=== PATIENT | female | born 1985 | race Two or more races ===

== ENCOUNTER 2016-04-25 07:54 | Day surgery (SDC) | payer OTHER ==
[~2016-04-25 07:54] MED LIST: IV START KIT ONE; LACTATED RINGERS 1,000 ML ONE
[2016-04-25] MEDS ORDERED: LACTATED RINGERS 1,000 ML IV SCH ×2 (08:25→12:00)
[2016-04-25] MEDS ORDERED: LIDOCAINE 1% 2 ML VIAL ID PRN (09:29)
[2016-04-25] MEDS ORDERED: MIDAZOLAM HCL 1 MG/ML 2ML VIAL ONE (10:19)
[2016-04-25] MEDS ORDERED: FENTANYL 5 ML ONE (10:20)
[2016-04-25] MEDS ORDERED: BUPIVACAINE 0.25% EPI PF 30 ML VIAL ONE (11:23)
[2016-04-25] MEDS ORDERED: SUCCINYLCHOLINE CHL 20 MG/ML DOSE ONE (11:41)
[2016-04-25] MEDS ORDERED: ROCURONIUM BROMIDE 10 MG/ML DOSE IV ONE (11:41)
[2016-04-25] MEDS ORDERED: DEXAMETHASONE SOD PHOS 4 MG/1 ML VIAL ONE (11:41)
[2016-04-25] MEDS ORDERED: ONDANSETRON 4 MG/2ML 2 ML VIAL ONE ×2 (11:41→14:55)
[2016-04-25] MEDS ORDERED: PROPOFOL 20 ML IV ONE (11:41)
[2016-04-25] MEDS ORDERED: LIDOCAINE 2% (MULTI DOSE) 10 ML VIAL ONE (11:41)
[2016-04-25] MEDS ORDERED: ONDANSETRON 4 MG/2ML 2 ML VIAL IV PRN ×2 (11:48→13:42)
[2016-04-25] MEDS ORDERED: HYDROMORPHONE HCL 1 MG/ML SYRINGE IV PRN (11:48)
[2016-04-25] MEDS ORDERED: FENTANYL 100 MCG/2 ML VIAL IV PRN (11:48)
[2016-04-25] MEDS ORDERED: MEPERIDINE 25 MG/ML SYRINGE IV PRN (11:48)
[2016-04-25] MEDS ORDERED: NALOXONE HCL 0.4 MG/ML VIAL IV PRN (11:48)
[2016-04-25] MEDS ORDERED: PROMETHAZINE HCL 25 MG/ML VIAL IM PRN (11:48)
[2016-04-25] MEDS ORDERED: ATROPINE SULFATE 0.4 MG/1 ML VIAL IV PRN (11:48)
[2016-04-25] MEDS ORDERED: KETOROLAC TROMETHAMINE 30 MG/ML 1 ML VIAL ONE ×2 (11:55→14:41)
[2016-04-25] MEDS ORDERED: KETAMINE HCL 50 MG/ML 1 ML DOSE ONE (12:04)
[2016-04-25] MEDS ORDERED: HYDROMORPHONE HCL 2 MG/ML SYRINGE ONE (12:45)
--- NOTE | 2016-04-25 13:22 | PDOC5 ---
Hospital Course: ADMIT DATE: DISCHARGE DATE: 04/25/16 ADMISSION DIAGNOSES: Pelvic pain, abnormal bleeding with abnormal uterus on US PROCEDURES: laparoscopy, hysteroscopy, D&C HISTORY OF PRESENT ILLNESS: 31 year old presenting for surgery, after postponing this from 04/04/16 because of an URI. She is feeling better but may have a yeast infx. HOSPITAL COURSE: The patient had a laparoscopy that was essentially normal and uncomplicated. Hysteroscopy showed several polyps and a lush endometrium but otherwise normal. No sign of endometriosis or infection. Bowels appeared full , ?bloated. By day of discharge the patient is ambulating, eating, voiding, and passing flatus without difficulty. Pain is controlled. - Objective General: Afebrile Lungs: Clear to Auscultation Bilaterally Cardiovascular: Regular Rate and Rhythm Abdomen: Soft, Non-Distended Wound [employer]: Dressing Clean/Dry/Intact Genitourinary: Normal Female Genitalia Extremities: Full ROM Skin: Normal Color, Warm Neurological: Normal Speech Psych/Mental Status: Normal Affect - Discharge Diagnosis (1) Chronic female pelvic pain Status: Acute Assessment/Plan: No endometriosis, no adhesions, no sign of infection. - Discharge Plan Condition: Good Disposition: Home Prescriptions: Ibuprofen [Motrin] 800 mg PO Q8H PRN #100 tablet PRN Reason: Pain Oxycodone HCl/Acetaminophen [PERCOCET 5/325 MG TABLET (SHF)] 1 tab PO Q4H PRN # 40 tab PRN Reason: Pain Follow-Up: Mallory Granado MD [Staff Physician] - In 7-10 days
[2016-04-25] MEDS ORDERED: MORPHINE SULFATE 2 MG/ML SYRINGE IV PRN (13:42)
[2016-04-25] MEDS ORDERED: ACETAMINOPHEN 325 MG TABLET PO PRN (13:42)
[2016-04-25] MEDS ORDERED: KETOROLAC TROMETHAMINE 30 MG/ML 1 ML VIAL IV PRN (13:42)
[2016-04-25] MEDS ORDERED: FLUCONAZOLE 150 MG TABLET PO ONE (13:42)
[2016-04-25] MEDS ORDERED: OXYCODONE/ACETAMINOPHEN 5/325 MG TABLET PO PRN (13:42)
[2016-04-25] MEDS ORDERED: DIPHENHYDRAMINE HCL 50 MG/1 ML VIAL IV PRN (13:42)
[2016-04-25] MEDS ORDERED: IBUPROFEN 800 MG TABLET PO PRN (13:42)
[2016-04-25] MEDS ORDERED: MORPHINE SULFATE 4 MG/ML SYRINGE IV PRN (14:02)
--- NOTE | 2016-04-25 17:40 | PCMBPN ---
Brief Post Op Note: Date of Procedure: 04/25/16 Start Time: Preoperative Diagnosis: 1. Pelvic pain 2. abnormal bleeding Postoperative Diagnosis: 1. Same 2. Endometrial polyps. Procedure: Laparoscopy, hysteroscopy, D&C Surgeon: Mallory Granado Assist:Rustam Anesthesia: Florencio Pleitez, general Findings: bowel appears bloated, normal appendix and GB and liver margin. Normal tubes, generous ovaries, normal AV uterus, no endometriosis, no adhesions. Some inflammatory changes, non-specific Polyps inside uterus. Condition: good Complications: none IV Fluids: mLs of LR Urine Output: mLs Estimated Blood Loss: 50 mLs Tourniquet Time: N/A Specimens: EM curettage. Implants: N/A Drains: N/A
--- NOTE | 2016-04-27 16:01 | OP ---
JACQUELYN TORRES [id number] DATE OF : 1985 DATE OF SURGERY: 04/25/2016 PREPROCEDURE DIAGNOSES: Pelvic pain, abnormal bleeding. POSTPROCEDURE DIAGNOSES: Pelvic pain, abnormal bleeding, endometrial polyps. PROCEDURE PERFORMED: Diagnostic laparoscopy, hysteroscopy, and dilatation and curettage. SURGEONS: Mallory Granado MD WIRE SPOOLER: Rustam. KILN BURNER HELPER: Florencio Moore ANESTHESIA: General anesthesia was used. ESTIMATED BLOOD LOSS: 50 mL. FINDINGS: Intraperitoneal contents were normal except bowel appeared a little bit full and distended. The appendix was seen well and appeared normal. The gallbladder looked normal. Liver margin was smooth and healthy. The uterus was anteverted, mobile, and appeared normal. The fallopian tubes, and ovaries were normal. The ovaries were a little generous, and showed normal psychologic cysts. There were no adhesions, and no evidence of endometriosis. There was as suggestion of some inflammation in the pelvis, but there was very nonspecific. Hysteroscopy showed polyps inside the uterus and just thick lush fluffy tissue. DESCRIPTION OF PROCEDURE: On the morning of 04/25/2016, after the usual preoperative preparations were completed, Jacquelyn was brought to the operating room and placed on the operating room table in a supine position. The usual monitoring leads were placed. General anesthesia was then administered and the patient was intubated without difficulty. She was then placed in an adjustable dorsal lithotomy position with the adjustable stirrups, and proper positioning was verified. The patient's left arm was propped at her side. A vaginal and perineal prep was performed and then the abdominal prep was performed. Patient was then draped for gynecology laparoscopy. A time out was performed verifying proper patient, procedure, position, personnel, and equipment. After verifying an adequate level of anesthesia, the cervix was visualized with a speculum. It was grasped with a tenaculum. A double-toothed uterine manipulator was placed without difficulty. Gloves were changed and attention was then turned to the laparoscopic part of the surgery. A small vertical incision was made in the lower portion of the umbilicus with a scalpel. This was also injected with some 0.25% bupivacaine. The Veress needle was placed through this this and approximately 2.5 L were instilled into the peritoneal cavity under low pressure. The Veress needle was removed and the 5 mm port was placed without difficulty under direct visualization. Inspection of the intraperitoneal and contents showed no evidence of any injury to the bowel. The intestines, however, did seem a little bit distended and bloated, or sluggish with a large amount of stool. The fundus of the uterus was seen, but I could not see deep into the cul-de-sac, nor could I see the ovaries. Because of this decision was made to insert another port in the left lower quadrant and this was done in the usual fashion under direct visualization. Using a manipulator through this left lower quadrant port the fallopian tubes, and ovaries were inspected and appeared normal, though both ovaries seemed a little bit generous and showed multiple psychologic cysts. Fallopian tubes were normal. The appendix was retrocecal and appeared normal. The gallbladder appeared full, but normal. Liver margin was smooth, and healthy. There were no other findings noted, just a small amount of fluid in the posterior cul-de-sac. The instruments were removed from the abdomen allowing all of the air to escape. During this time, the patient was also given several deep breaths. The 2 small incisions were closed with 4-0 Monocryl followed by Steri-Strips and band-aids. We then moved to doing the hysteroscopy. The cervix was dilated a little bit further, and the then the hysteroscope was easily inserted into the endometrial cavity. The uterine cavity showed a normal shape. There were just a few small polyps and some fluffy tissue. The endometrium itself appears somewhat lush, and thick. Some pictures were taken, and then a thorough uterine curettage was performed yielding a moderate amount of tissue. This was all sent to pathology for examination. The patient had some bleeding from the dilatation and curettage, but also had some bleeding from the tenaculum site for the uterine manipulator. The cervix was cauterized with some silver nitrate and this stopped most of the bleeding. The instruments were all removed from the vagina. Patient was then cleaned up. She was taken out of the dorsal lithotomy position. She was gently awoken from the anesthesia without difficulty and extubated. She was then transferred to her bed and taken to the recovery room in stable condition. SULTANA/saul
--- NOTE | 2016-04-29 15:38 | SURGPATH ---
[facility] [address] [place] [id number] Patient Name: JANINA TORRES MR#: [id number] : 1985 Gender: F Specimen #: [id number] Collected: 04/25/2016 Received: 04/28/2016 Reported: 04/29/2016 Submitting Phys: ROSETTA FOX Copy To Phys: JORGE ACUNA [facility] Clinical History / Pre-Operative Diagnosis: CHRONIC PELVIC PAIN Specimen Source / Surgical Procedure Performed: ENDOMETRIAL CURETTINGS Interpretation: ENDOMETRIUM, CURETTAGE: - BENIGN SECRETORY ENDOMETRIUM Electronically Signed Out Maddison Stubbs M.D. Gross Description: The specimen is received in a formalin filled container labeled with the patient's name and "endometrial curettings". An aggregate of levi tissue admixed with hemorrhagic material is 3.5 x 3.0 x 0.6 cm. Totally embedded in cassettes A and B. Rogers Bennett Microscopic Description: Sections show multiple fragments of secretory endometrium with predecidualized stroma and spiral arterioles. No groups of plasma cells are seen to diagnose chronic endometritis. No hyperplasia or carcinoma is seen. 1: [id number] R10.2
== END 2016-04-25 16:50 | disposition home or self-care (01) ==
LOC: SDC 07:54
PROVIDERS: ATTEND Obstetrics & Gynecology
PROC: 0UDB8ZX Extraction of Endometrium, Via Natural or Artificial Opening Endoscopic, Diagnostic (ICD-10-PCS; principal; 2016-04-25)
DX: N93.9 Abnormal uterine and vaginal bleeding, unspecified (principal); N84.0 Polyp of corpus uteri
CPT/HCPCS: 58558; J1170; J3010; J1100; J1885; J2250; J2405 ×2; J7120; A9270 ×2; J2001